=== PATIENT | male | born 1990 | race Two or more races ===

== ENCOUNTER → 2022-11-01 | Outpatient (CLI) | payer OTHER | LOC: M RAD 10:48 | PROVIDERS: ATTEND Physician Assistant | DX: N50.89 Other specified disorders of the male genital organs (principal) ==

== ENCOUNTER → 2022-12-19 | Outpatient (CLI) | payer OTHER ==
[~2022-12-19] MED LIST: TYLE650T38 PO
[2022-12-19 17:33] LABS: HEMATOCRIT 44.9 % (42.0-52.0); HEMOGLOBIN 13.5 g/dl (13.5-17.5); MEAN CORPUSCULAR HEMOGLOBIN 20.1 pg (27.0-33.0); MEAN CORPUSCULAR HGB CONC 30.1 g/dl (32.0-36.5); PLATELET COUNT, AUTOMATED 146 10^3/uL (150-450); WHITE BLOOD COUNT 5.7 10^3/uL (4.0-10.0)
[2022-12-19 17:55] LABS: ALBUMIN 3.9 G/DL (3.2-5.2); ALKALINE PHOSPHATASE 49 U/L (46-116); ALT/SGPT 24 U/L (7.0-40); AST/SGOT 12 U/L (<34); BILIRUBIN,TOTAL 0.6 MG/DL (0.3-1.2); BLOOD UREA NITROGEN 10 MG/DL (9-23); CALCIUM LEVEL 8.9 MG/DL (8.5-10.1); CARBON DIOXIDE LEVEL 29 MMOL/L (20-31); CHLORIDE LEVEL 104 MMOL/L (98-107); CREATININE FOR GFR 1.08 MG/DL (0.70-1.30); GLOMERULAR FILTRATION RATE > 60.0 (>60); GLUCOSE, FASTING 92 MG/DL (60-100); POTASSIUM SERUM 3.9 MMOL/L (3.5-5.1); SODIUM LEVEL 140 MMOL/L (136-145); TOTAL PROTEIN 7.3 G/DL (5.7-8.2)
== END ==
LOC: M LAB 17:04
PROVIDERS: ATTEND Urology
DX: S30.22XA Contusion of scrotum and testes, initial encounter (principal); W18.30XA Fall on same level, unspecified, initial encounter; Y92.009 Unspecified place in unspecified non-institutional (private) residence as the place of occurrence of the external cause

== ENCOUNTER 2022-12-31 06:59 | Day surgery (SDC) | payer OTHER ==
[~2022-12-31] VITALS: Ht 175.3 cm; Wt 81.6 kg
[~2022-12-31 06:59] MED LIST changes: +ceFAZolin SOD 2 GM in IV 1 EA IV ONE
[2022-12-31] MEDS ORDERED: LR 1,000 ML IV SCH ×2 (07:15→09:20)
[2022-12-31] MEDS ORDERED: propofoL 200 MG/20 ML VIAL As Ordered ONE (07:24)
[2022-12-31] MEDS ORDERED: MIDAZOLAM INJ 2MG/2ML VIAL As Ordered ONE (07:25)
[2022-12-31] MEDS ORDERED: fentaNYL 100 MCG/2 ML INJECTION As Ordered ONE (07:25)
[2022-12-31] MEDS ORDERED: LIDOCAINE 1% SDV 30ML VIAL As Ordered ONE (08:02)
[2022-12-31] MEDS ORDERED: BACITRACIN OINTMENT 30GM TUBE As Ordered ONE (08:02)
[2022-12-31] MEDS ORDERED: ONDANSETRON 4MG 2ML VIAL IV PRN (09:20)
[2022-12-31] MEDS ORDERED: HYDR-3713 PO (09:20)
[2022-12-31] MEDS ORDERED: CEPH500C PO (09:20)
[2022-12-31] MEDS: fentaNYL 100 MCG/2 ML INJECTION IV PRN ×4 (09:41→09:56)
[2022-12-31] MEDS: oxyCODONE 5MG TAB PO PRN ×2 (09:42→10:12)
[2022-12-31 11:10] VITALS: BP 132/85; TEMP 97.4; O2SAT 98
== END 2022-12-31 11:25 | disposition home or self-care (01) ==
LOC: M SDC 06:59
PROVIDERS: ATTEND Urology
DX: N99.840 Postprocedural hematoma of a genitourinary system organ or structure following a genitourinary system procedure (principal); N50.1 Vascular disorders of male genital organs; F17.200 Nicotine dependence, unspecified, uncomplicated
CPT/HCPCS: 54700; 55041; 88302; J0665; J0690; J2250; J3010

== ENCOUNTER → 2023-06-12 | Outpatient (REF) | payer OTHER ==
[~2023-06-12] MED LIST changes: +CEPH500C PO; +HYDR-3713 PO; -ceFAZolin SOD 2 GM in IV 1 EA IV ONE
[2023-06-12 10:46] LABS: SEMEN APPEARANCE OPAQUE (OPAQUE)
[2023-06-12 10:47] LABS: SEMEN VISCOSITY LIQUID (LIQUID); SEMEN VOLUME 5.6 ml (2.0-5.0); WBC CONCENTRATION <=1 M/ml (<=1 M/ml)
== END ==
LOC: M LAB REF 10:15
PROVIDERS: ATTEND Physician Assistant
DX: Z30.2 Encounter for sterilization (principal)